=== PATIENT | male | born 1980 | race Caucasian/White ===

== ENCOUNTER 2019-09-21 12:44 | Emergency (ER) | payer SELFPAY ==
[2019-09-21 12:54] VITALS: BP 132/84; PULSE 78; RESP 16; TEMP 36.7; O2SAT 98; BMI 29.0
--- NOTE | 2019-09-21 15:17 | XRR_ITS ---
PROCEDURE INFORMATION: Exam: XR Right Hip with Pelvis when Performed Exam date and time: 09/21/2019 3:32 PM Age: 38 years old Clinical indication: Injury or trauma; Fall; Initial encounter; Blunt trauma (contusions or hematomas); Right; Hip; Injury date: 09/20/19; Prior surgery; Surgery date: 6+ months TECHNIQUE: Imaging protocol: XR Right hip with pelvis when performed. Views: 1 view. COMPARISON: No relevant prior studies available. FINDINGS: Bones/joints: Postoperative changes in the right acetabulum have a satisfactory appearance. No hardware fracture or loosening. No acute bony fracture or dislocation. There is severe degenerative changes in the right hip. Soft tissues: Unremarkable. XR/XR hip RT 2-3V wo/w pel* [id number] IMPRESSION: No acute bony abnormality. Severe degenerative changes are noted in the right hip.
--- NOTE | 2019-09-21 15:31 | PC.NURSE ---
portable xray at bedside
--- NOTE | 2019-09-21 16:37 | W.ED.EXTPRO ---
Documented by User: BRAD Lamar 09/22/19 07:00 HPI - Extremity Problem General: Chief complaint: Extremity Injury, Lower Stated complaint: Leg injury Time Seen by Provider: 09/21/19 15:12 Source: patient Mode of arrival: ambulatory Limitations: no limitations History of Present Illness: HPI Narrative: Patient is a 38-year-old male who presents to ED today with complaints of right hip pain; patient states he normally has chronic bilateral hip pain from bilateral surgeries over the years; patient states he fell yesterday and since the fall has had worsening right hip pain; reports he is able to ambulate but with severe pain MD Complaint: joint paint Onset (ago): day(s) Pain Consistency: constant Location: right Radiation: none Relieving factors: immobilization Exacerbating factors: range of motion and weight bearing Associated symptoms: Reports no associated symptoms Review of Systems Musc: Reports: joint pain and limited range of motion PFSH ED PFSH: Statuses (acute, chronic, etc) shown below reflect problem list status as previously entered and may not be historically accurate Social History Smoking and tobacco status: never smoked Physical Exam Const: COMMON NORMALS: no apparent distress, average body habitus, oriented x3, healthy appearing, alert and well nourished Extremity: RIGHT LOWER EXTREMITY: Yes hip joint (cannot raise leg over 1-2 inches off table; TTP to anterior/lateral hip) Neuro: COMMON NORMALS: oriented x3 and no sensory deficits noted SENSORIUM/ORIENTATION: Yes alert Course Vital Signs: Vital signs: Vital Signs Temperature 98.0 F 09/21/19 12:54 Pulse Rate 20 L 09/21/19 18:34 Respiratory Rate 18 09/21/19 18:34 Blood Pressure 131/89 09/21/19 18:34 Pulse Oximetry 97 09/21/19 18:34 MDM - Extremity (Nontraumatic) MDM Narrative: Medical decision making narrative: spoke to Dr. Mesa who spoke to Dr. Goldstein who said CT imaging would be the next best imaging to further evaluate; initial XRs look okay Imaging Data^: R hip: Radiologist's impression: [address] [address] XRay Report Signed Patient: Kevin Nair Unit #: [id number] : 1980 Age/Sex: 38 / M ADM Date: 09/21/19 Loc: ER Room/Bed: Attending Dr: Ordering Provider/Ordering MD: Nikkie Matthews Date of Service: 09/21/19 Procedure(s): XR hip RT 2-3V wo/w pel* [id number] Accession Number(s): [id number] Report Number: [id number] PROCEDURE INFORMATION: Exam: XR Right Hip with Pelvis when Performed Exam date and time: 09/21/2019 3:32 PM Age: 38 years old Clinical indication: Injury or trauma; Fall; Initial encounter; Blunt trauma (contusions or hematomas); Right; Hip; Injury date: 09/20/19; Prior surgery; Surgery date: 6+ months TECHNIQUE: Imaging protocol: XR Right hip with pelvis when performed. Views: 1 view. COMPARISON: No relevant prior studies available. FINDINGS: Bones/joints: Postoperative changes in the right acetabulum have a satisfactory appearance. No hardware fracture or loosening. No acute bony fracture or dislocation. There is severe degenerative changes in the right hip. Soft tissues: Unremarkable. XR/XR hip RT 2-3V wo/w pel* [id number] IMPRESSION: No acute bony abnormality. Severe degenerative changes are noted in the right hip. Dictated By: Geena Roldan Signed By: Geena Roldan Signed Date/Time: 09/21/19 1635 DD/ 1634 Discharge Plan Discharge Patient Disposition: Home, Self-Care Clinical Impression: Degenerative joint disease (DJD) of hip Qualifiers: Osteoarthritis type: unspecified Laterality: right Qualified Code(s): M16.11 - Unilateral primary osteoarthritis, right hip Condition: Stable Discharge Orders: Discharge Order (Routine); Ordered 09/21/19 Ordered By: Domenic Walters Discharge Diet: Regular Discharge Activity: Increase activity as tolerated and Use walker/crutches as instructed Activity Restrictions/Additional Instructions: Orthopedic referral. I will see orthopedic office should be calling you in the next couple days to set up an appointment. Take ibuprofen or Aleve for pain. Limit activity and use walker or crutches as to limit weightbearing onto right leg. Discharge Date/Time: 09/21/19 18:37 Sign Out Sign Out Data: Patient Sign Out occurred on 09/21/19 at 17:23. Patient's care was discussed, and care was transferred from to BRAD Carmona. Post-Handoff Eval: pend R hip/pelvis CT Coding Level of Care Code ED Poleyard Supervisor for Chg Fwd Exam Problem Focused Documented by User: BRAD Carmona 09/22/19 02:54 HPI - Extremity Problem General: Chief complaint: Extremity Injury, Lower Stated complaint: Leg injury Time Seen by Provider: 09/21/19 15:12 Review of Systems General: Reports: 10 or more systems reviewed and unremarkable except in HPI and below PFSH ED PFSH: Statuses (acute, chronic, etc) shown below reflect problem list status as previously entered and may not be historically accurate Social History Smoking and tobacco status: never smoked Physical Exam Const: COMMON NORMALS: oriented x3 Resp: COMMON NORMALS: normal respiratory effort, no retractions, no use of accessory muscles and clear to auscultation bilaterally AUSCULTATION: clear to auscultation bilaterally Cardio: COMMON NORMALS: regular rate, regular rhythm, S1 normal heart sound, S2 normal heart sound, no gallops, no clicks, no murmurs and peripheral pulses 2+ throughout RATE: regular rate RHYTHM: regular rhythm HEART SOUNDS: S1 normal and S2 normal PERIPHERAL PULSES: pulses 2+ throughout GI: COMMON NORMALS: normal to inspection, nondistended, normoactive bowel sounds, soft to palpation, non-tender and no masses PALPATION: Yes soft : COMMON NORMALS: Yes no CVA tenderness BLADDER/KIDNEY EXAM: Yes no CVA tenderness Back/Pelvis: COMMON NORMALS: no CVA tenderness Neuro: COMMON NORMALS: oriented x3 Course Vital Signs: Vital signs: Vital Signs Temperature 98.0 F 09/21/19 12:54 Pulse Rate 20 L 09/21/19 18:34 Respiratory Rate 18 09/21/19 18:34 Blood Pressure 131/89 09/21/19 18:34 Pulse Oximetry 97 09/21/19 18:34 MDM - Extremity (Nontraumatic) Imaging Data^: Other CT: Attestation: I personally reviewed and interpreted this imaging study as follows: Radiologist's impression: [facility] [address] [place] [place] [address] CT Scan Report Signed Patient: Kevin Nair Unit #: [id number] : 1980 Age/Sex: 38 / M ADM Date: 09/21/19 Loc: ER Room/Bed: Attending Dr: Ordering Provider/Ordering MD: Nikkie Matthews Date of Service: 09/21/19 Procedure(s): CT bony pelvis 20013 Accession Number(s): [id number] Report Number: [id number] PROCEDURE INFORMATION: Exam: CT Pelvis Without Contrast; Skeletal Exam date and time: 09/21/2019 4:46 PM Age: 38 years old Clinical indication: Injury or trauma; Initial encounter; Blunt trauma (contusions or hematomas); Right; Injury details: RT hip pain / fall 1 day ago; Prior surgery; Surgery type: Vic hip; Additional info: R hip pain TECHNIQUE: Imaging protocol: Computed tomography images of the pelvis without contrast. Exam focused on the skeletal structures. Total DLP: 786.98 mGy-cm Radiation optimization: All CT scans at this facility use at least one of these dose optimization techniques: automated exposure control; mA and/or kV adjustment per patient size (includes targeted exams where dose is matched to clinical indication); or iterative reconstruction. COMPARISON: CR XR hip RT 2-3V wo/w pel* [id number] 09/21/2019 3:27 PM FINDINGS: Bones/joints: There is a satisfactory appearance of the postoperative plate and screw fixation of the right acetabulum. The fracture is healed with mature bone. No hardware loosening or failure. There is a satisfactory appearance of the postoperative changes left femur with plate and screw fixation. No evidence of nonunion or hardware failure. There are mild degenerative changes in the sacroiliac joints and left hip. There is severe degenerative changes in the right hip with joint space narrowing, sclerosis and large osteophytes. No acute fracture or bony destruction. No avascular necrosis. Soft tissues: There is a fat-containing umbilical hernia. CT/CT bony pelvis [id number] IMPRESSION: 1. Satisfactory postoperative right acetabulum. 2. Satisfactory postoperative changes left hip. 3. Severe end-stage degenerative changes right hip joint. 4. No acute bony abnormality. Radiation Dose CTDIVOL = (mGy): DLP = 786.98 (mGy-cm) Dictated By: Geena Roldan Signed By: Geean Roldan Signed Date/Time: 09/21/191732 DD/ 31 Discharge Plan Discharge Patient Disposition: Home, Self-Care Clinical Impression: Degenerative joint disease (DJD) of hip Qualifiers: Osteoarthritis type: unspecified Laterality: right Qualified Code(s): M16.11 - Unilateral primary osteoarthritis, right hip Condition: Stable Discharge Orders: Discharge Order (Routine); Ordered 09/21/19 Ordered By: Domenic Walters Discharge Diet: Regular Discharge Activity: Increase activity as tolerated and Use walker/crutches as instructed Activity Restrictions/Additional Instructions: Orthopedic referral. I will see orthopedic office should be calling you in the next couple days to set up an appointment. Take ibuprofen or Aleve for pain. Limit activity and use walker or crutches as to limit weightbearing onto right leg. Discharge Date/Time: 09/21/19 18:37 Sign Out Sign Out Data: Patient Sign Out occurred on 09/21/19 at 17:23. Patient's care was discussed, and care was transferred from to BRAD Carmona. Post-Handoff Eval: pend R hip/pelvis CT Coding Level of Care Code ED Poleyard Supervisor for Chg Fwd Exam Problem Focused
[2019-09-21 17:03] VITALS: BP 129/76; PULSE 96; O2SAT 96
--- NOTE | 2019-09-21 17:21 | PC.NURSE ---
return from CT by stretcher with tech
[2019-09-21 18:34] VITALS: BP 131/89; PULSE 20; RESP 18; O2SAT 97
--- NOTE | 2019-09-23 09:28 | DCPLANNER ---
mobile marketing manager had message to schedule a follow up appointment for patient with ortho. mobile marketing manager called the ortho clinic, spoke with Carolyn, gave clinic patients information. mobile marketing manager was told that patients information would be printed and reviewed. Clinic will call case management director and patient with appointment information.
--- NOTE | 2019-10-06 12:32 | DCPLANNER ---
late entry - health policy manager spoke with Pat at [facility], was told that patient would need to follow up with a [facility] due to the nature of what is going on with patient. health policy manager called patient several times to inform him of this, and to speak with patient about foster care case manager starting the referral process. health policy manager called phone number on face sheet and was told that there was no one there by that name.
== END 2019-09-21 18:37 | disposition home or self-care (01) ==
PROVIDERS: Emergency Provider Physician Assistant
DX: M16.11 Unilateral primary osteoarthritis, right hip (principal)
CPT/HCPCS: 72192; 73502; 99281